=== PATIENT | male | born 1960 | race Caucasian/White ===

== ENCOUNTER 2024-05-04 15:43 | Emergency (ER) | payer OTHER, SELFPAY ==
--- NOTE | 2024-05-04 15:50 | XRR_ITS ---
PROCEDURE INFORMATION: Exam: XR Chest Exam date and time: 05/04/2024 4:51 PM Age: 63 years old Clinical indication: Pain; Chest pressure; Additional info: Chest pain TECHNIQUE: Imaging protocol: Radiologic exam of the chest. Views: 1 view. COMPARISON: No relevant prior studies available. FINDINGS: Lungs: Unremarkable. No consolidation. Pleural spaces: Unremarkable. No pleural effusion. No pneumothorax. Heart/Mediastinum: Unremarkable. No cardiomegaly. Bones/joints: Unremarkable. XR/XR chest 1V portable 71021 IMPRESSION: No acute findings.
[2024-05-04 15:51] VITALS: BP 171/92; PULSE 68; RESP 16; TEMP 36.6; O2SAT 67; BMI 23.6
[2024-05-04 16:56] LABS: Basophils # 0.1 10^3/uL (0.0-0.1); Basophils % 1.6 %; Eosinophils # 0.4 10^3/uL (0.0-0.8); Eosinophils % 8.1 %; Hematocrit 45.2 % (37-53); Lymphocytes % 23.8 %; Mean Corpuscular HGB Conc 32.7 g/dL (30-55); Mean Corpuscular Hemoglobin 29.9 pg (27-33); Mean Corpuscular Volume 91.3 fl (82-101); Mean Platelet Volume 9.6 fL (7.4-10.4); Monocytes # 0.4 10^3/uL (0.2-0.9); Monocytes % 8.6 %; Neutrophils # 2.49 10^3/uL (1.8-7.7); Neutrophils % 57.7 %; Nucleated Red Blood Cells % 0 %; Platelet Count 259 10^3/cmm (157-399); Red Blood Count 4.95 10^6/uL (3.85-5.65); Red Cell Distribution Width 12.6 % (12.1-15.1); White Blood Count 4.32 10^3/uL (3.29-11.43)
--- NOTE | 2024-05-04 17:06 | ED_ITS ---
HPI - Chest Pain 2 General: Chief Complaint: Chest Pain Stated Complaint: chest pain Time Seen by Provider: 05/04/24 16:48 History of Present Illness: 63-year-old man with no known past medic al history presents emergency room with complaints of chest pain. He says last night he had had a brief episode that he thought might be heartburn. However it was more severe than usual heartburn. Went into his back and into his neck. Only lasted briefly then. Today about 2 hours or so ago he developed the same pain. Epigastric and central chest into his back and into his jaw. No nausea or vomiting. No diaphoresis. This lasted about an hour and resolved on his way to the emergency room. He says he feels fine now. No known cardiac history. Non-smoker. No fevers or chills. No cough. No lower extremity swelling. Related Data Allergies Allergy/AdvReac Type Severity Reaction Status Date / Time No Known Allergies Allergy Verified 05/04/24 15:54 Review of Systems 2 Narrative: Constitutional symptoms: Negative except as documented in HPI. Skin symptoms: Negative except as documented in HPI. Eye symptoms: Negative except as documented in HPI. ENMT symptoms: Negative except as documented in HPI. Respiratory symptoms: Negative except as documented in HPI. Cardiovascular symptoms: Negative except as documented in HPI. Gastrointestinal symptoms: Negative except as documented in HPI. Genitourinary symptoms: Negative except as documented in HPI. Musculoskeletal symptoms: Negative except as documented in HPI. Neurologic symptoms: Negative except as documented in HPI. Psychiatric symptoms: Negative except as documented in HPI. Endocrine symptoms: Negative except as documented in HPI. Physical Exam 2 Narrative: EXAM NARRATIVE: General: Alert, no acute distress. Skin: Warm, dry. Head: Normocephalic, atraumatic. Neck: Supple, trachea midline. Eye: Extraocular movements are intact. Ears, nose, mouth and throat: mucosa moist. Cardiovascular: Regular, Normal peripheral perfusion. Respiratory: Lungs are clear to auscultation, respirations are non-labored, breath sounds are equal, Symmetrical chest wall expansion. Gastrointestinal: Soft, Nontender, Non distended Musculoskeletal: Normal ROM, no deformity. Neurological: Alert and oriented, No focal neurological deficit observed. Psychiatric: Cooperative, appropriate mood & affect. Course 2 Vital Signs: Vital signs: Vital Signs Temperature 97.8 F 05/04/24 15:51 Pulse Rate 59 L 05/04/24 18:21 Respiratory Rate 18 05/04/24 18:21 Blood Pressure 162/91 05/04/24 18:21 Pulse Oximetry 100 05/04/24 18:21 Oxygen Delivery Me thod Room Air 05/04/24 18:21 MDM - Chest Pain Medical Decision Making Differential diagnosis for patient with chest pain includes but is not limited to and based on the above HPI, review of systems and physical exam: Pneumonia. unstable angina. angina. Acute coronary syndrome / [place]. Pulmonary embolism. Costochondritis / musculoskeletal. Pleurisy. Pericarditis. Esophageal spasm. Pancreatis. Cholecystitis. Orders placed to evaluate differential diagnosis based on the above differential, HPI and physical exam EKG: Time 1545. Rate 71. Normal sinus rhythm, No ST-T changes, no ectopy, normal [place] & QRS intervals, This was reviewed and interpreted by myself the ER physician at 1550. Chest x-ray: No acute process. No infiltrate. No pneumothorax. This was reviewed and interpreted by myself the emergency room physician. I also reviewed the radiology report. Lab Review: Laboratory results were reviewed and interpreted by myself the emergency room physician. No leukocytosis. No anemia. HEART Pathway for Early Discharge in Acute Chest Pain from [email or web address] on 05/04/2024 All calculations should be rechecked by clinician prior to use RESULT SUMMARY: 6 points HEART Pathway Score High risk 12-65% 30-day MACE Cardiology consultation and admission recommended. Further testing indicated. INPUTS: History ?> 2 = Highly suspicious EKG ?> 0 = Normal Age ?> 1 = 45-64 Risk factors ?> 1 = 1-2 risk factors Initial troponin ?> 2 = >3x normal limit I reviewed the patient's medical record. Reexamination: Has had no further chest pain while here. Patient remained stable. No increased work of breathing. No altered mental status. No focal motor deficits. I discussed findings with the patient and that given his elevated troponin and his symptoms he is high risk for having had heart attack and that he needs to be admitted to the hospital. He agrees to admission. Consultation: I spoke with Dr. Montoya who is on-call for cardiology. He recommends therapeutic Lovenox, 600 mg Plavix, metoprolol 25 twice daily. 324 chewable aspirin. Stat echo. Consultation: I spoke with Dr. Nichols who is on-call for the hospitalist service who agrees to admission to the cardiac stepdown unit. Pulmonary embolism is very unlikely in this patient. No tachycardia. O2 sats are 100%. No lower extremity swelling. No shortness of breath. Assessment and plan: Non-ST elevation myocardial infarction Chest pain Hypertension ?Cardiology consulted. She will aspirin, therapeutic Lovenox, metoprolol, 600 mg Plavix, stat echo all done in the emergency room. -I discussed the patient with the hospitalist on-call who is admitting the patient. - Discussed findings and plan with patient. Answered any questions. - All laboratory values were reviewed and interpreted personally by myself, the ER physician - All imaging was reviewed and interpreted personally by myself, the ER physician. - Evaluation and treatment of this problem were appropriate in the emergency setting Lab Data 05/04/24 16:49 05/04/24 16:49 Radiology Impressions Chest X-Ray 05/04/24 15:50 IMPRESSION: No acute findings. Laboratory Results WBC 4.32 10^3/uL (3.29-11.43) 05/04/24 16:49 RBC 4.95 10^6/uL (3.85-5.65) 05/04/24 16:49 Hgb 14.80 g/dL (11.27-16.99) 05/04/24 16:49 Hct 45.2 % (37-53) 05/04/24 16:49 MCV 91.3 fl (82-101) 05/04/24 16:49 MCH 29.9 pg (27-33) 05/04/24 16:49 MCHC 32.7 g/dL (30-55) 05/04/24 16:49 RDW 12.6 % (12.1-15.1) 05/04/24 16:49 Plt Count 259 10^3/cmm (157-399) 05/04/24 16:49 MPV 9.6 fL (7.4-10.4) 05/04/24 16:49 Neut % (Auto) 57.7 % 05/04/24 16:49 Lymph % (Auto) 23.8 % 05/04/24 16:49 [place] % (Auto) 8.6 % 05/04/24 16:49 Eos % (Auto) 8.1 % 05/04/24 16:49 Baso % (Auto) 1.6 % 05/04/24 16:49 Neut # (Auto) 2.49 10^3/uL (1.8-7.7) 05/04/24 16:49 Lymph # (Auto) 1.0 10^3/uL (0.8-4.8) 05/04/24 16:49 [place] # (Auto) 0.4 10^3/uL (0.2-0.9) 05/04/24 16:49 Eos # (Auto) 0.4 10^3/uL (0.0-0.8) 05/04/24 16:49 Baso # (Auto) 0.1 10^3/uL (0.0-0.1) 05/04/24 16:49 Nucleated RBC % (auto) 0 % 05/04/24 16:49 Nucleated RBCs # 0.0 /100WBC 05/04/24 16:49 Sodium 140 mmol/L (136-145) 05/04/24 16:49 Potassium 4.1 mmol/L (3.5-5.1) 05/04/24 16:49 Chloride 106 mmol/L (98-107) 05/04/24 16:49 Carbon Dioxide 26 mmol/L (22-29) 05/04/24 16:49 Anion Gap 12.1 (5-19) 05/04/24 16:49 BUN 18 mg/dL (8-23) 05/04/24 16:49 Creatinine 1.2 mg/dL (0.7-1.2) 05/04/24 16:49 GFR Calculation 61.0 mL/min (90-130) L 05/04/24 16:49 Glucose 131 mg/dL (65-115) H 05/04/24 16:49 Calculated Osmolality 294 mOsm/kg (285-295) 05/04/24 16:49 Calcium 9.4 mg/dL (8.5-10.5) 05/04/24 16:49 Total Bilirubin 0.2 mg/dL (0.15-1.2) 05/04/24 16:49 AST 23 U/L (0-40) 05/04/24 16:49 ALT 18 U/L (0-41) 05/04/24 16:49 Alkaline Phosphatase 70 U/L (40-130) 05/04/24 16:49 Troponin T Baseline 104 ng/L (0-15) H* 05/04/24 16:49 NT-Pro-B Natriuret Pep 148 pg/mL (0-125) H 05/04/24 16:49 Total Protein 6.2 g/dL (6.6-8.7) L 05/04/24 16:49 Albumin 4.1 g/dL (3.5-5.2) 05/04/24 16:49 Globulin 2.1 g/dL (1.3-4.6) 05/04/24 16:49 All radiology interpretation(s) finalized by discharge Clincial Decision Support The following clinical decision support tools were used to aid in care of the patient HEART Score -> History: Highly Suspicious, EKG: Normal, Age: 45-64 yrs, Risk Factors: 1 or 2 Risk Factors, Troponin: Baseline Trop >45 ng/L. Resulting HEART Score: 6. 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
[2024-05-04 17:08] VITALS: PULSE 73; O2SAT 99
[2024-05-04 17:12] VITALS: BP 160/83; PULSE 68; RESP 16; O2SAT 100
[2024-05-04 17:30] LABS: Alanine Aminotransferase 18 U/L (0-41); Albumin Level 4.1 g/dL (3.5-5.2); Alkaline Phosphatase 70 U/L (40-130); Anion Gap 12.1 (5-19); Aspartate Amino Transferase 23 U/L (0-40); Blood Urea Nitrogen 18 mg/dL (8-23); Calcium 9.4 mg/dL (8.5-10.5); Carbon Dioxide 26 mmol/L (22-29); Chloride 106 mmol/L (98-107); Creatinine Clr Calc Pharmacy 62.8495; Globulin 2.1 g/dL (1.3-4.6); Glucose 131 mg/dL (65-115); NT Pro B Type Natriuretic Pept 148 pg/mL (0-125); Osmolality Calculated 294 mOsm/kg (285-295); Potassium 4.1 mmol/L (3.5-5.1); Sodium 140 mmol/L (136-145); Total Bilirubin 0.2 mg/dL (0.15-1.2); Total Protein 6.2 g/dL (6.6-8.7)
[2024-05-04 17:32] LABS: Troponin(5th) Baseline 104 ng/L (0-15)
--- NOTE | 2024-05-04 17:50 | ECG_ITS ---
[facility] Date: 2024-05-04 Pat Name: Cielo Guevara Department: Room: Gender: Male Tray Packer: : 1960 Requested By: Libia Gaytan Order Number: [id number] Eulalia MD: Javy Montoya M.D. Measurements Intervals [place] Rate: 66 P: 30 AK: 159 QRS: 50 QRSD: 88 T: 64 QT: 383 QTc: 404 Interpretive Statements SINUS RHYTHM POSSIBLE RIGHT VENTRICULAR CONDUCTION DELAY [RSR (QR) IN V1/V2] No previous ECG available for comparison Electronically Signed On 05-05-2024 17:22:12 [employer] by Javy Montoya M.D. [email or web address]
--- NOTE | 2024-05-04 18:09 | USCV_ITS ---
Cielo Guevara Age: 63 Gender: M : 1960 Exam Date: 05/04/2024 18:50 Ordering Phys: Libia Bejarano MD Technologist: Maynor Montoya Exam Location: [facility] [place] Indication: nonstemi BP: 162 / 91 HR: 65 Rhythm: Sinus Technical Quality: Adequate MEASUREMENTS (Male / Female) Normal Values 2D ECHO LV Diastolic Diameter PLAX 4.8 cm 4.2 - 5.9 / 3.9 - 5.3 cm IVS Diastolic Thickness 1.3 cm 0.6 - 1.0 / 0.6 - 0.9 cm IVS Systolic Thickness 1.4 cm LVPW Diastolic Thickness 1.0 cm 0.6 - 1.0 / 0.6 - 0.9 cm LVPW Systolic Thickness 1.8 cm LVOT Diameter 2.0 cm LV Ejection Fraction 2D Teich 74.1 % LV Ejection Fraction MOD 4C 71.9 % LV Ejection Fraction MOD 2C 67.9 % LV Ejection Fraction 2C AL 67.0 % LA Diameter 3.2 cm RA Systolic Volume 4C AL 37.6 ml RA Systolic Volume 4C MOD 37.7 ml LA Sys Volume AL 46.1 cm cubed LA Sys Volume Index AL 24.5 cm cubed/m squared Aorta at Sinotubular Diameter 2.3 cm IVC Diameter 1.5 cm M-MODE LA Ao Ratio MM 1.5 AV Cusp Separation MM 1.4 cm DOPPLER AV Peak Velocity 117.7 cm/s LVOT Peak Velocity 75.0 cm/s AV Area Cont Eq vti 2.1 cm squared AV Area Cont Eq pk 2.1 cm squared MV Peak Velocity 104.0 cm/s MV Area PHT 5.2 cm squared Mitral E to A Ratio 1.4 TV Peak Velocity 162.5 cm/s TR Peak Velocity 167.0 cm/s TR Peak Gradient 11.2 mmHg TR Mean Velocity 142.0 cm/s TR Mean Gradient 8.3 mmHg TR Velocity Time Integral 46.1 cm PV Peak Velocity 124.0 cm/s RV Ejection Time 0.3 s FINDINGS Left Ventricle Mild concentric left trickle hypertrophy with a normal borderline normal ejection fraction 50 to 55%. Moderate hypokinesia of the mid and apical septum and the anteroseptal segments. Right Ventricle The right ventricle is normal in size and function. Right Atrium The right atrium is normal in size. Left Atrium Mildly increased left atrial size. Mitral Valve Trace mitral valve regurgitation. Aortic Valve No gross abnormalities noted Tricuspid Valve No gross abnormalities noted Pulmonic Valve No gross abnormalities noted Pericardium Normal pericardium without effusion. Aorta Normal ascending aorta dimension. IVC Normal inferior vena cava. CONCLUSIONS Mild concentric left trickle hypertrophy with a normal borderline normal ejection fraction 50 to 55%. Moderate hypokinesia of the mid and apical septum and the anteroseptal segments. Mildly increased left atrial size. Trace mitral valve regurgitation. There is no pericardial effusion. There are no intracardiac masses. No similar previous studies are available for comparison Dr Javy Montoya MD FAC (Electronically Signed) Final Date: 04 May 2024 20:38 S
[2024-05-04] MEDS: clopidogrel 300 mg Tablet 600 MG PO (18:17)
[2024-05-04] MEDS: aspirin 81 mg Chew Tablet 324 MG PO (18:17)
[2024-05-04] MEDS: enoxaparin 80 mg/0.8 mL Syringe 70 MG SUBCUT (18:19)
[2024-05-04 18:21] VITALS: BP 162/91; PULSE 59; RESP 18; O2SAT 100
--- NOTE | 2024-05-04 18:31 | P.CONIM_ITS ---
Providers/Reason For Consult 2 Consulting Physician/Specialty*: OUMOU Montoya MD/cardiology Reason for Consult*: Patient with chest pain and elevated troponin T Requesting Physician: Dr. Nichols Attending Physician: Juaquin Nichols History of Present Illness History of Present Illness Cielo Guevara is a 63 year old male is present with complaints of recurrent episodes of chest pain, radiated to the jaws, to the neck and to the back since yesterday. He was found to have elevated troponin T. Cardiology consult is requested for further cardiac evaluation recommendations. This patient has a history of elevated blood pressure and? Allergic asthma. He never been treated for high blood pressure. He was on some medication for the asthma but has not been taking it lately. He apparently been in his baseline state of health up until last evening around 8:00 when he started having the first episode of pain, after his dinner, in the chest, rating to the back between the shoulder blades, into the neck and to the jaws. The pain was moderate intensity. Associated with some nausea. The pain meter lasted for half an hour or so and then gradually subsided. He felt okay since then up until this afternoon around 3:00. This time also the pain started after a meal. The pain was in the chest radiating to the back mostly to the jaws and his neck. Intensity of the pain was around 5/10. Because of the persistence of this pain, he decided to come to the hospital emergency room. The pain meter lasted for an hour or so and then gradually started subsiding. At the time of my examination, patient is pain-free. He has no other associated symptoms or radiation of pain. No fever, chills or cough. This patient has no previous history for coronary disease, myocardial infarction or congestive heart failure. He has blood pressure has been in the 130-140 range most of the times but never been treated. The cholesterol status is not known. Used to take some medication for allergic asthma but lately has not been taking the medication. No history for diabetes. No CVA, peripheral artery disease, kidney disease, liver disease or bleeding disorders. No history of smoking abuse or alcohol abuse. His father, a chain smoker, had a heart attack in his 50s. No other relevant family history. Patient is self-employed and is running a small business. Review of Systems 2 Narrative: CONSTITUTIONAL: No fever or chills. EYES: No blurring of vision or other visual disturbances lately. ENT: No hoarseness of voice, auditory disturbances or sore throat. CARDIOVASCULAR: As mentioned above. RESPIRATORY: No significant cough. GASTROINTESTINAL: No hematemesis or melena. GENITOURINARY: No dysuria or hematuria. INTEGUMENTARY: No skin rashes or history of skin cancer. NEURO: No transient ischemic attacks or amaurosis. PSYCHIATRIC: No history of psychosis or major depression. HEMATOLOGIC: No bleeding disorders or significant anemia. ENDOCRINE: No history of polyuria or polydipsia. MUSCULOSKELETAL: No recent joint pain or swelling. ALLERGY/IMMUNOLOGY: As mentioned above. Medications/Allergies Allergies Allergy/AdvReac Type Severity Reaction Status Date / Time No Known Allergies Allergy Verified 05/04/24 15:54 Vitals/I&O/Wt Last Vital Signs Temp 97.8 F 05/04/24 15:51 Pulse 59 L 05/04/24 18:21 Resp 18 05/04/24 18:21 BP 162/91 05/04/24 18:21 Pulse Ox 100 05/04/24 18:21 O2 Del Method Room Air 05/04/24 18:21 Weight last 48 hrs Weight 160 lb Physical Exam 2 Narrative: GENERAL: The patient is alert and oriented times three. Not in any acute distress. HEENT: No significant pallor, icterus or lymphadenopathy.Oral cavity: There are no mucous membrane lesions. NECK: Trachea appears to be central. No masses noted. No JVD or thyromegaly appreciated. RESPIRATORY: Chest is symmetrical. No intercostals muscle retraction or any accessory muscle activation. There is no chest wall tenderness. Breath sounds are heard bilaterally. No rales or rhonchi heard. No evidence of any consolidation. BREASTS: Deferred. HEART: The heart sounds are normal. No S3 or S4. No significant murmurs. No pericardial rub ABDOMEN: No vessel pulsations or distention. No tenderness. No organomegaly appreciated. Bowel sounds are normally heard. : Deferred. RECTAL: Deferred. LYMPHATIC: No lymphadenopathy noted in the neck. EXTREMITIES: No edema or cyanosis. No clubbing. Good peripheral pulses MUSCULOSKELETAL: No acute joint deformities or swelling SKIN: There are no significant rashes or ecchymosis NEUROPSYCHIATRIC: The patient is alert and oriented x3. Appears to be in a good mood. No tremors or rigidity noted. Data 05/04/24 16:49 05/04/24 16:49 Other Labs: Laboratory Last Values WBC 4.32 10^3/uL (3.29-11.43) 05/04/24 16:49 RBC 4.95 10^6/uL (3.85-5.65) 05/04/24 16:49 Hgb 14.80 g/dL (11.27-16.99) 05/04/24 16:49 Hct 45.2 % (37-53) 05/04/24 16:49 MCV 91.3 fl (82-101) 05/04/24 16:49 MCH 29.9 pg (27-33) 05/04/24 16:49 MCHC 32.7 g/dL (30-55) 05/04/24 16:49 RDW 12.6 % (12.1-15.1) 05/04/24 16:49 Plt Count 259 10^3/cmm (157-399) 05/04/24 16:49 MPV 9.6 fL (7.4-10.4) 05/04/24 16:49 Neut % (Auto) 57.7 % 05/04/24 16:49 Lymph % (Auto) 23.8 % 05/04/24 16:49 [place] % (Auto) 8.6 % 05/04/24 16:49 Eos % (Auto) 8.1 % 05/04/24 16:49 Baso % (Auto) 1.6 % 05/04/24 16:49 Neut # (Auto) 2.49 10^3/uL (1.8-7.7) 05/04/24 16:49 Lymph # (Auto) 1.0 10^3/uL (0.8-4.8) 05/04/24 16:49 [place] # (Auto) 0.4 10^3/uL (0.2-0.9) 05/04/24 16:49 Eos # (Auto) 0.4 10^3/uL (0.0-0.8) 05/04/24 16:49 Baso # (Auto) 0.1 10^3/uL (0.0-0.1) 05/04/24 16:49 Nucleated RBC % (auto) 0 % 05/04/24 16:49 Nucleated RBCs # 0.0 /100WBC 05/04/24 16:49 Sodium 140 mmol/L (136-145) 05/04/24 16:49 Potassium 4.1 mmol/L (3.5-5.1) 05/04/24 16:49 Chloride 106 mmol/L (98-107) 05/04/24 16:49 Carbon Dioxide 26 mmol/L (22-29) 05/04/24 16:49 Anion Gap 12.1 (5-19) 05/04/24 16:49 BUN 18 mg/dL (8-23) 05/04/24 16:49 Creatinine 1.2 mg/dL (0.7-1.2) 05/04/24 16:49 GFR Calculation 61.0 mL/min (90-130) L 05/04/24 16:49 Glucose 131 mg/dL (65-115) H 05/04/24 16:49 Calculated Osmolality 294 mOsm/kg (285-295) 05/04/24 16:49 Calcium 9.4 mg/dL (8.5-10.5) 05/04/24 16:49 Total Bilirubin 0.2 mg/dL (0.15-1.2) 05/04/24 16:49 AST 23 U/L (0-40) 05/04/24 16:49 ALT 18 U/L (0-41) 05/04/24 16:49 Alkaline Phosphatase 70 U/L (40-130) 05/04/24 16:49 Troponin T Baseline 104 ng/L (0-15) H* 05/04/24 16:49 NT-Pro-B Natriuret Pep 148 pg/mL (0-125) H 05/04/24 16:49 Total Protein 6.2 g/dL (6.6-8.7) L 05/04/24 16:49 Albumin 4.1 g/dL (3.5-5.2) 05/04/24 16:49 Globulin 2.1 g/dL (1.3-4.6) 05/04/24 16:49 Other data: The EKG shows Normal sinus rhythm with some nonspecific ST-T changes in the anterior leads Echocardiogram ( preliminary view) revealed normal LV size with diminished ejection fraction of 45 to 50%. Moderate hypokinesia of mid and apical septum and the anteroseptal segments. A&P Assessment and plan (1) Atherosclerotic heart disease of [place] coronary artery with unstable angina pectoris: Patient has a clinical features of an unstable angina. The EKG changes are nonspecific. Most likely, he has ischemia distribution of the left left anterior descending artery. He may be treated with subcu Lovenox, Plavix, aspirin, beta-heidi, nitrates, statin and other symptomatic measures. Qualifiers: [place] vs. transplanted heart: [place] heart Qualified Code(s): I25.110 - Atherosclerotic heart disease of [place] coronary artery with unstable angina pectoris (2) Non-ST elevated myocardial infarction: The initial troponin T is elevated. Serial enzymes and EKGs are pending. (3) Accelerated hypertension: Patient also be started on lisinopril 10 mg p.o. now and daily. The blood pressure needs to be closely monitored. Plan I will be reviewing the echocardiogram. Lipid profile on the blood in the lab. I may start him on Lipitor 80 mg p.o. now and daily. Nitropaste 1 inch every 6 hours 20 chest wall. Plavix 600 mg p.o. now followed by 75 mg p.o. daily Baby aspirin 1 tablet p.o. daily Metoprolol 25 mg p.o. twice daily Patient on the clinical progress, further recommendations will be made. I discussed the patient and his family in detail about the current status and the treatment plan. Patient would benefit from a cardiac catheterization to evaluate his coronary status and decide on further management. We might be able to do the cardiac colorization tomorrow. Since he is pain-free with no ongoing symptoms, it may be appropriate to do the angiogram tomorrow. Patient understood these well. All questions were answered to his satisfaction. Discussed with Dr. Nichols and the ER physician. Coding Level of Care Code 97692 Diagnoses Atherosclerosis of [place] coronary artery of [place] heart with unstable angina pectoris I25.110 [place] vs. transplanted heart: [place] heart Non-ST elevated myocardial infarction I21.4 Accelerated hypertension I10
[2024-05-04] MEDS: metoprolol tartrate 25 mg Tablet PO (18:47)
[2024-05-04 20:05] LABS: Chol HDL Ratio 4.96 mg/dL (1.0-5.00); Cholesterol 258 mg/dL (0-200); HDL Cholesterol 52 mg/dL (60-100); LDL Cholesterol Calculated 180 mg/dL (50-129); LDL HDL Ratio 3.46 RATIO (0.00-3.22); Triglycerides 131 mg/dL (0-150)
[2024-05-04 20:09] LABS: Troponin 5 2HR 264.1 ng/L (0-15); Troponin 5 2HR Delta 160.1 ABS# (0-10)
[2024-05-04] MEDS: nitroglycerin 1 gm/inch oint Pkt 1 INCH TOPICAL (20:29)
[2024-05-04 20:38] VITALS: BP 159/88; PULSE 54; O2SAT 98
[2024-05-04 21:03] VITALS: BP 159/88; PULSE 58; O2SAT 97
== END 2024-05-04 21:07 | disposition short-term general hospital (02) ==
LOC: ER 18:16 → CSU 18:29
PROVIDERS: Internal Medicine Cardiovascular Disease; Emergency Provider Emergency Medicine; Family Provider General Practice
DX: I21.4 Non-ST elevation (NSTEMI) myocardial infarction (principal); R07.9 Chest pain, unspecified; I10 Essential (primary) hypertension
CPT/HCPCS: 36415; 71045; 80053; 80061; 83880; 84484; 85025; 93005; 93306; 96372; 99285; J1650